=== PATIENT | male | born 2000 | race Caucasian/White ===

== ENCOUNTER 2024-06-06 17:07 | Emergency (ER) | payer SELFPAY ==
[~2024-06-06] VITALS: Ht 188 cm; Wt 79.5 kg
[2024-06-06 17:14] VITALS: TEMP 97.4
[2024-06-06 19:26] LABS: BASO % 0.3 % (0.0-2.0); EOS # 0.1 K/mm3 (0.0-0.7); EOS % 1.5 % (0.0-4.0); GRAN # 2.8 K/mm3 (1.4-6.5); GRAN % 45.5 % (42.2-75.2); HEMATOCRIT 42.8 % (42.0-52.0); HEMOGLOBIN 14.7 g/dl (13.5-18.0); LYMPH # 2.6 K/mm3 (1.2-3.4); LYMPH % 43.1 % (20.0-51.0); MEAN CELL VOLUME 88 fl (80.0-100.0); MEAN CORPUSCULAR HEMOGLOBIN 30 pg (27-31); MEAN CORPUSCULAR HGB CONC 34 g/dl (33.0-37.0); MEAN PLATELET VOLUME 9.6 fl (7.4-10.4); MONO # 0.6 K/mm3 (0.1-0.6); MONO % 9.3 % (1.7-9.3); PLATELET COUNT 288 K/mm3 (130-400); RED BLOOD COUNT 4.85 M/mm3 (4.20-5.60); REDCELL DISTRIBUTION WIDTH-CV 11.9 % (11.5-14.5)
[2024-06-06] MEDS ORDERED: NS 1,000 ML IV ONE (19:30)
[2024-06-06] MEDS ORDERED: Sucralfate Susp 1 GM/10 ML UD PO ONE (19:30)
[2024-06-06 19:38] LABS: ALBUMIN 4.7 g/dL (3.5-5.0); BILIRUBIN,TOTAL 3.6 mg/dL (0.2-1.2); C-REACTIVE PROTEIN 0.03 mg/dL (0.00-0.50); CALCIUM 9.1 mg/dL (8.4-10.2); CREATININE, serum 0.91 mg/dL (0.72-1.25); TOTAL PROTEIN 7.2 g/dl (6.2-8.1)
[2024-06-06] MEDS ORDERED: Iohexol 300 - 100 ML VIAL IV ONE (19:43)
[2024-06-06] MEDS ORDERED: NS 100 ML IV ONE (19:43)
[2024-06-06 20:03] LABS: POTASSIUM 3.5 mEq/L (3.5-4.5)
[2024-06-06] MEDS ORDERED: Dicyclomine 10 MG CAP PO ONE (20:15)
[2024-06-06] MEDS ORDERED: BENTYL 20MG20 MG/TAB PO (21:49)
[2024-06-06 22:24] VITALS: BP 123/74; PULSE 76
== END 2024-06-06 22:24 | disposition home or self-care (01) ==
LOC: COL.ER 17:07
PROVIDERS: Emergency Medicine
DX: E80.7 Disorder of bilirubin metabolism, unspecified (principal); R10.13 Epigastric pain
CPT/HCPCS: J2765; J7030; Q9967

== ENCOUNTER → 2024-06-07 | Outpatient (CLI) | payer BC ==
[~2024-06-07] MED LIST: BENTYL 20MG20 MG/TAB PO
== END ==
LOC: COL.RAD 06:34
DX: R17 Unspecified jaundice (principal)